=== PATIENT | male | born 1995 | race Hispanic/Latino ===

== ENCOUNTER 2022-05-14 09:39 | Emergency (ER) | payer SELFPAY ==
[2022-05-14] MEDS ORDERED: HYDROCODONE/APAP 5/325 MG TAB ONE (10:24)
[2022-05-14] MEDS ORDERED: LIDOCAINE 1% MPF 5 ML VIAL ONE (10:24)
--- NOTE | 2022-05-14 11:02 | RAD REPORT ---
EXAM DESCRIPTION: RAD - Hand Right 3 View - 05/14/2022 10:47 am CLINICAL HISTORY: laceration to right 2nd finger, eval for foreign body COMPARISON: No comparisons FINDINGS/IMPRESSION: No acute fracture. No malalignment. No significant focal degenerative changes. No radiopaque foreign body.
--- NOTE | 2022-05-14 11:47 | EDPHYS ---
Physician Documentation [facility] Name: Gerson Jean-Baptiste Age: 26 yrs Sex: Male : 1995 Arrival Date: 05/14/2022 Time: 09:42 Bed 15 Private MD: ED Physician Jason Headley HPI: 05/14 10:17 This 26 yrs old Male presents to ER via Ambulatory with complaints of Finger rn Injury. 10:17 Trauma demographics: Location of Injury: The injury occurred outdoors. Mechanism of rn injury: laceration. Associated injuries: The patient sustained right 2nd digit. Onset: The symptoms/episode began/occurred just prior to arrival. The patient has not experienced similar symptoms in the past. The patient has not recently seen a physician. Pt reports cut right 2nd fingertip on piece of metal. Tetanus up-to-date 1-2 years ago. . Historical: - Allergies: 09:51 No Known Allergies; ss - Home Meds: 09:51 None [Active]; ss - PMHx: 09:51 None; ss - PSHx: 09:51 Cholecystectomy; ss - Immunization history:: Client reports having NOT received the Covid vaccine. Last tetanus immunization: unknown. - Social history:: Smoking status: Patient reports the use of cigarette tobacco products, smokes one-half pack cigarettes per day. - Family history:: not pertinent. - Hospitalizations: : No recent hospitalization is reported. ROS: 10:17 Constitutional: Negative for fever, chills, and weight loss, MS/Extremity: + laceration rn to rigth distal 2nd finger Exam: 10:17 Constitutional: This is a well developed, well nourished patient who is awake, alert, rn and in no acute distress. Skin: Warm, dry with normal turgor. Normal color with no rashes, no lesions, and no evidence of cellulitis. MS/ Extremity: Pulses equal, no cyanosis. Neurovascular intact. + 1.5 cm superficial linear laceration right 2nd finger distal phalanx, no active bleeding, + mild numbness to area surrounding wound, no cyanosis, able to flex at DIP. Vital Signs: 09:49 BP 135 / 90; Pulse 92; Resp 16; Temp 98.8(TE); Pulse Ox 98% on R/A; Weight 106.59 kg; ss Height 6 ft. 0 in. (182.88 cm); Pain 10/10; 10:15 BP 133 / 94; Pulse 89; Resp 16 S; Pulse Ox 100% ; jg9 11:15 BP 126 / 84; Pulse 82; Resp 17 S; Pulse Ox 100% on R/A; Pain 8/10; jg9 09:49 Body Mass Index 31.87 (106.59 kg, 182.88 cm) ss Laceration: 11:17 Wound Repair of 1.5cm ( 0.6in ) subcutaneous laceration to palmar aspect of distal cp phalanx of right index finger. Linear shaped.. Distal neuro/vascular/tendon intact. Anesthesia: Wound infiltrated with 3 mls of 1% lidocaine. Wound prep: Moderate cleansing by me, Wound irrigation by me. Skin closed with 4 4-0 Prolene using interrupted sutures and sterile technique. Dressed with 4x4's. Patient tolerated well. MDM: 09:44 Patient medically screened. rn 11:45 Differential diagnosis: extremity fracture, laceration. Data reviewed: vital signs, rn nurses notes, radiologic studies, plain films, and as a result, I will discharge patient. Counseling: I had a detailed discussion with the patient and/or guardian regarding: the historical points, exam findings, and any diagnostic results supporting the discharge/admit diagnosis, radiology results, the need for outpatient follow up, to return to the emergency department if symptoms worsen or persist or if there are any questions or concerns that arise at home. Response to treatment: the patient's symptoms have markedly improved after treatment, and as a result, I will discharge patient. Special discussion: I discussed with the patient/guardian in detail that at this point there is no indication for admission to the hospital. It is understood, however, that if the symptoms persist or worsen the patient needs to return immediately for re-evaluation. 05/14 10:02 Order name: XRAY Hand RIGHT 3 View; Complete Time: 11:10 rn 05/14 10:03 Order name: Suture Tray at Bedside; Complete Time: 10:13 rn 05/14 10:16 Order name: Wound Care; Complete Time: 11:21 rn Administered Medications: 10:20 Drug: [place] (HYDROcodone-acetaminophen) 5 mg-325 mg 1 tabs Route: PO; jg9 11:28 Follow up: Response: No adverse reaction; Pain is decreased jg9 11:15 Drug: Lidocaine (1 %) 1 vials Volume: 5 ml; Route: Infiltration; jg9 11:28 Follow up: Response: No adverse reaction jg9 Disposition: 11:47 Co-signature as Attending Physician, Jason Headley MD. rn Disposition Summary: 05/14/22 11:46 Discharge Ordered Location: Home rn Problem: new rn Symptoms: have improved rn Condition: Stable rn Diagnosis - Laceration without foreign body of unspecified finger without damage to nail - rn right 2nd finger Followup: rn - With: Jas Flood MD - When: 5 - 6 days - Reason: Recheck today's complaints, Re-evaluation by your physician Followup: rn - With: Private Physician - When: 10 - 14 days - Reason: Staple/Suture removal Discharge Instructions: - Discharge Summary Sheet rn - Laceration Care, Adult rn Forms: - Medication Reconciliation Form rn - Thank You Letter rn - Antibiotic rn hyperbaric - Prescription Opioid Use rn Prescriptions: - Augmentin 875-125 mg Oral Tablet - take 1 tablet by ORAL route every 12 hours for 10 days; 20 tablet; Refills: 0, rn Product Selection Permitted Signatures: Dispatcher [employer] EDJason Maldonado MD MD rn Smirch, Shelby, RN RN Henri Morrison PA PA cp Gilmore, Jennifer RN RN jg9
--- NOTE | 2022-05-14 11:47 | ER ---
Nurse's Notes [facility] Name: Gerson Jean-Baptiste Age: 26 yrs Sex: Male : 1995 Arrival Date: 05/14/2022 Time: 09:42 Bed 15 Private MD: Diagnosis: Laceration without foreign body of unspecified finger without damage to nail-right 2nd finger Presentation: 05/14 09:49 Chief complaint: Patient states: Laceration to R index finger that occurred 30 minutes ss ago. Pt states he was taking down a satellite at work when it came down on his finger. Coronavirus screen: Client denies travel out of the [place] in the last 14 days. Ebola Screen: Patient denies exposure to infectious person. Patient denies travel to an Ebola-affected area in the 21 days before illness onset. Initial Sepsis Screen: Does the patient meet any 2 criteria? No. Patient's initial sepsis screen is negative. Does the patient have a suspected source of infection? No. Patient's initial sepsis screen is negative. Risk Assessment: Do you want to hurt yourself or someone else? Patient reports no desire to harm self or others. Onset of symptoms was May 14, 2022. 09:49 Method Of Arrival: Ambulatory ss 09:49 Acuity: KRISTEL 4 ss Triage Assessment: 10:15 General: Appears uncomfortable, Behavior is calm, cooperative. Pain: Complains of pain jg9 in palmar aspect of distal phalanx of right index finger Pain currently is 10 out of 10 on a pain scale. Quality of pain is described as. EENT: No deficits noted. Neuro: No deficits noted. Cardiovascular: No deficits noted. Respiratory: No deficits noted. GI: No deficits noted. : No deficits noted. Derm: No deficits noted. Skin. Musculoskeletal: laceration to right pointer finger tip. Injury Description: Laceration sustained to palmar aspect of distal phalanx of right index finger is clean, 0.5 to 2.5 cm long, not bleeding, no active bleeding noted at this time. Historical: - Allergies: 09:51 No Known Allergies; ss - Home Meds: 09:51 None [Active]; ss - PMHx: 09:51 None; ss - PSHx: 09:51 Cholecystectomy; ss - Immunization history:: Client reports having NOT received the Covid vaccine. Last tetanus immunization: unknown. - Social history:: Smoking status: Patient reports the use of cigarette tobacco products, smokes one-half pack cigarettes per day. - Family history:: not pertinent. - Hospitalizations: : No recent hospitalization is reported. Screenin:33 Abuse screen: Denies threats or abuse. Denies injuries from another. Nutritional jg9 screening: No deficits noted. Tuberculosis screening: No symptoms or risk factors identified. Fall Risk None identified. Assessment: 11:00 Reassessment: No changes from previously documented assessment. Patient and/or family jg9 updated on plan of care and expected duration. Pain level reassessed. Patient is alert, oriented x 3, equal unlabored respirations, skin warm/dry/pink. Vital Signs: 09:49 BP 135 / 90; Pulse 92; Resp 16; Temp 98.8(TE); Pulse Ox 98% on R/A; Weight 106.59 kg; ss Height 6 ft. 0 in. (182.88 cm); Pain 10/10; 10:15 BP 133 / 94; Pulse 89; Resp 16 S; Pulse Ox 100% ; jg9 11:15 BP 126 / 84; Pulse 82; Resp 17 S; Pulse Ox 100% on R/A; Pain 8/10; jg9 09:49 Body Mass Index 31.87 (106.59 kg, 182.88 cm) ED Course: 09:42 Patient arrived in ED. rg4 09:44 Jason Headley MD is Attending Physician. rn 09:51 Triage completed. ss 09:51 Arm band placed on right wrist. ss 10:12 Shira Pastor, RN is Primary Nurse. jg9 10:35 Patient has correct armband on for positive identification. Bed in low position. Call jg9 light in reach. Side rails up X 1. 10:49 XRAY Hand RIGHT 3 View In Process Unspecified. EDMS 11:46 Jas Flood MD is Referral Physician. rn 11:54 No provider procedures requiring assistance completed. jg9 11:55 Patient did not have IV access during this emergency room visit. jg9 Administered Medications: 10:20 Drug: [place] (HYDROcodone-acetaminophen) 5 mg-325 mg 1 tabs Route: PO; jg9 11:28 Follow up: Response: No adverse reaction; Pain is decreased jg9 11:15 Drug: Lidocaine (1 %) 1 vials Volume: 5 ml; Route: Infiltration; jg9 11:28 Follow up: Response: No adverse reaction jg9 Medication: 11:55 VIS not applicable for this client. jg9 Outcome: 11:46 Discharge ordered by . rn 11:54 Discharged to home ambulatory. jg9 11:54 Condition: stable jg9 11:55 Discharge instructions given to patient, Instructed on discharge instructions, follow jg9 up and referral plans. Demonstrated understanding of instructions, follow-up care, Prescriptions given X 1. 11:55 Patient left the ED. jg9 Signatures: Dispatcher [employer] EDMS Jason Headley MD MD rn Smirch, Shelby, RN RN ss Garcia, Rubi 4 Shira Pastor RN RN jg9
[2022-05-14 12:12] VITALS: TEMP 98.8
[2022-05-14 12:14] VITALS: O2SAT 100
[2022-05-14 12:16] VITALS: BP 126/84
== END 2022-05-14 11:55 | disposition home or self-care (01) ==
LOC: ER 09:39
PROC: 0JQJ0ZZ Repair Right Hand Subcutaneous Tissue and Fascia, Open Approach (ICD-10-PCS; principal; 2022-05-14)
DX: S61.210A Laceration without foreign body of right index finger without damage to nail, initial encounter (principal); F17.210 Nicotine dependence, cigarettes, uncomplicated
CPT/HCPCS: 99283